=== PATIENT | female | born 1955 | race Caucasian/White ===

== ENCOUNTER 2017-06-07 20:24 | Emergency (ER) | payer BC ==
--- NOTE | 2017-06-07 22:08 | RAD ---
CHEST TWO VIEWS: 06/07/2017 HISTORY: Cough. COMPARISON: 01/08/2010 FINDINGS: There is prominence of the cardiac silhouette. There is diffuse increased linear interstitial densit y with pulmonary hyperinflation, suggesting COPD in the proper clinical setting. No pneumothorax, pl eural fluid, focal consolidation, or alveolar edema. There is a stable mild degree of dextroscoliosi s of the lower thoracic spine. IMPRESSION: No acute findings. POS: [facility]
== END 2017-06-07 21:45 | disposition home or self-care (01) ==
LOC: SCSER 20:24
DX: J20.9 Acute bronchitis, unspecified (principal); J45.909 Unspecified asthma, uncomplicated
CPT/HCPCS: 71046